=== PATIENT | male | born 1990 | race African-American/Black ===

== ENCOUNTER 2020-06-05 12:16 | Outpatient (CLI) | payer BC, SELFPAY ==
--- NOTE | 2020-06-05 | ECHO_ITS ---
Patient Info Name: Chu Love Age: 30 years : 1990 Gender: Male Ht: 69 in Wt: 260 lbs BSA: 2.45 m2 HR: 71 bpm BP: 155 / 100 mmHg Technical Quality: Good Exam Date: 06/05/2020 1:34 PM Exam Location: [facility] Patient Status: Outpatient Admit Date: 06/05/2020 Staff Ordering Physician: Anuj Coyle MD Outdoor [employer] Instructor: Ernesto Rosado RDCS, RT Attending Provider: Anuj Coyle MD Referring Physician: Leonides ARREOLA; Exam Type: CA echo doppler color flow Study Info Indications R00.2 - Palpitations Complete two-dimensional, color flow and Doppler transthoracic echocardiogram is performed. Summary 1. Complete two-dimensional, color flow and Doppler transthoracic echocardiogram is performed. 2. Left ventricular chamber dimension is normal. 3. Left ventricular systolic function is normal, estimated at 60-65%. 4. There is mildly increased left ventricular wall thickness. 5. The left ventricular diastolic function is normal. 6. E/e' 6 is not elevated. 7. Global longitudinal strain is abnormal at -15.2%. 8. There is mild mitral valve regurgitation. 9. There is mild tricuspid valve regurgitation. 10. No pulmonary hypertension, estimated pulmonary arterial systolic pressure is 25 mmHg. Left Ventricle E/e' 6 is not elevated. Global longitudinal strain is abnormal at -15.2%. Left ventricular chamber dimension is normal. Left ventricular systolic function is normal, estimated at 60-65%. There is mildly increased left ventricular wall thickness. The left ventricular diastolic function is normal. Right Ventricle Right ventricular chamber dimension is normal. Right ventricular systolic function is normal. Left Atria Left atrial chamber dimension is normal. Right Atria Right atrial chamber dimension is normal. Aortic Valve The aortic valve is trileaflet. There is no aortic valve stenosis. There is no aortic valve regurgitation. Pulmonic Valve There is no pulmonic regurgitation. Mitral Valve There is no mitral valve stenosis. There is mild mitral valve regurgitation. Tricuspid Valve There is mild tricuspid valve regurgitation. No pulmonary hypertension, estimated pulmonary arterial systolic pressure is 25 mmHg. Pericardium/Pleural There is no pericardial effusion. Inferior Vena Cava Normal inferior vena cava with >50% collapse upon inspiration consistent with normal right atrial pressure, 5 mmHg. Aorta The aortic root size at the sinus of Valsalva is normal. Left Ventricular Outflow Tract Name Value Normal LVOT 2D LVOT Diameter 1.9 cm LVOT Doppler LVOT Peak Gradient 4 mmHg LVOT Mean Gradient 2 mmHg LVOT VTI 20 cm LVOT VTI/AV VTI Ratio 0.8 LVOT Stroke Volume 58 ml LVOT CO 4.1 l/min LVOT CI 1.7 l/min/m2 Mitral Valve Name Value Normal --
--- NOTE | 2020-06-09 12:31 | WPDHOLTEREM ---
Holter/Event Monitor Holter/Event Monitor Date of procedure: 06/05/20 Procedure Type: 48 hour holter monitor Indications: Palpitations Conclusion: 1. 48 hour holter monitor on 06/05/20. 2. Underlying rhythm is sinus rhythm. HR range 49-152 bpm; average HR 77 bpm. 3. There are 3 premature supraventricular complexes. No supraventricular tachycardia. 4. There is 1 premature ventricular complex. No ventricular tachycardia. 5. No sinoatrial or atrioventricular blocks. No significant pauses greater than 2 seconds. 6. Patient reports symptoms of chest flutter with heart burn, chest flutter which demonstrate Sinus rhythm, HR range 71-102 bpm.
== END 2020-06-05 12:17 | disposition home or self-care (01) ==
LOC: ANHCARD 12:17
PROVIDERS: PCP Emergency Medicine; Visit Provider Emergency Medicine
DX: R00.2 Palpitations (principal); I36.1 Nonrheumatic tricuspid (valve) insufficiency; I34.0 Nonrheumatic mitral (valve) insufficiency
CPT/HCPCS: 93225; 93226; 93306

== ENCOUNTER 2020-10-16 15:20 | Outpatient (CLI) | payer BC, SELFPAY ==
--- NOTE | ~2020-10-16 | XR_ITS ---
EXAMINATION: XR UGIAC wo kub EXAM DATE: 10/16/2020 15:53 INDICATION: GERD w/o esophagitis. Right-sided neck, anterior chest pain when tilting head to the left . TECHNIQUE: Standard single and double contrast barium upper GI examination was performed. The DAP for this procedure was3.1 Gycm2. There is no prior study for comparison. FINDINGS: There is no esophageal stricture, diverticulum or mass identified. Gastroesophageal juncti on is normal in appearance. Reflux was not demonstrated during this examination. The stomach has a normal appearance without evidence of mass lesion, ulceration or filling defect. T here is normal rugal fold pattern. The duodenum and duodenal sweep are normal in appearance. IMPRESSION: Normal exam. Reviewed, dictated and finalized at location B. LE TRADER IMPRESSION: Normal exam.
== END 2020-10-16 15:21 ==
LOC: MICIMG 15:21
PROVIDERS: Visit Provider Emergency Medicine
DX: K21.9 Gastro-esophageal reflux disease without esophagitis (principal)
CPT/HCPCS: 74246

== ENCOUNTER 2021-01-13 09:12 | Outpatient (CLI) | payer BC, SELFPAY ==
--- NOTE | 2021-01-13 11:00 | NEURO_ITS ---
Impression: # Complains of upper extremity pain. # Normal nerve conduction study including median and ulnar nerves. # Normal needle/EMG exam. # Clinical correlation recommended. Nerve Conduction Studies Anti Sensory Summary Table Stim Site NR Peak (ms) P-T Amp (?V) Site1 Site2 Delta-P (ms) Dist (cm) Stalin (m/s) Left Median Anti Sensory (2-3nd Digit) Wrist 2.8 68.2 Wrist 2-3nd Digit 2.8 14.0 50 Wrist 2.7 59.6 Wrist 2-3nd Digit 2.8 14.0 50 Right Median Anti Sensory (2-3nd Digit) Wrist 2.7 64.0 Wrist 2-3nd Digit 2.7 14.0 52 Wrist 2.6 69.9 Wrist 2-3nd Digit 2.7 14.0 52 Left Radial Anti Sensory (Base 1st Digit) Wrist 1.8 28.9 Wrist Base 1st Digit 1.8 0.0 Right Radial Anti Sensory (Base 1st Digit) Wrist 2.3 20.0 Wrist Base 1st Digit 2.3 0.0 Left Ulnar Anti Sensory (5th Digit) Wrist 2.3 52.8 Wrist 5th Digit 2.3 14.0 61 Right Ulnar Anti Sensory (5th Digit) Wrist 2.3 68.0 Wrist 5th Digit 2.3 14.0 61 Motor Summary Table Stim Site NR Onset (ms) O-P Amp (mV) Site1 Site2 Delta-0 (ms) Dist (cm) Stalin (m/s) Left Median Motor (Abd Poll Brev) Wrist 2.8 7.1 Elbow Wrist 4.9 30.0 61 Elbow 7.7 3.9 Right Median Motor (Abd Poll Brev) Wrist 3.2 5.6 Elbow Wrist 4.5 29.0 64 Elbow 7.7 4.0 Left Ulnar Motor (Abd Dig Minimi) Wrist 2.5 6.3 A Elbow Wrist 5.7 33.0 58 A Elbow 8.2 6.0 Right Ulnar Motor (Abd Dig Minimi) Wrist 2.3 8.1 A Elbow Wrist 5.0 29.0 58 A Elbow 7.3 6.2 F Wave Studies NR F-Lat (ms) L-R F-Lat (ms) Left Median (Mrkrs) (Abd Poll Brev) 26.51 0.68 Right Median (Mrkrs) (Abd Poll Brev) 27.19 0.68 Left Ulnar (Mrkrs) (Abd Dig Min) 27.11 0.75 Right Ulnar (Mrkrs) (Abd Dig Min) 26.36 0.75 EMG Side Muscle Nerve Root Ins Act Fibs Amp Dur Recrt Comment Right 1stDorInt Ulnar C8-T1 Nml Nml Nml Nml Nml Right Ext Indicis Radial (Post Int) C7-8 Nml Nml Nml Nml Nml Right Ext Digitorum Radial (Post Int) C7-8 Nml Nml Nml Nml Nml Right BrachioRad Radial C5-6 Nml Nml Nml Nml Nml Right PronatorTeres Median C6-7 Nml Nml Nml Nml Nml Right Abd Poll Brev Median C8-T1 Nml Nml Nml Nml Nml Left 1stDorInt Ulnar C8-T1 Nml Nml Nml Nml Nml Left Ext Indicis Radial (Post Int) C7-8 Nml Nml Nml Nml Nml Left Ext Digitorum Radial (Post Int) C7-8 Nml Nml Nml Nml Nml Left BrachioRad Radial C5-6 Nml Nml Nml Nml Nml Left PronatorTeres Median C6-7 Nml Nml Nml Nml Nml Left Abd Poll Brev Median C8-T1 Nml Nml Nml Nml Nml Right Biceps Musculocut C5-6 Nml Nml Nml Nml Nml Right Triceps Radial C6-7-8 Nml Nml Nml Nml Nml Left Biceps Musculocut C5-6 Nml Nml Nml Nml Nml Left Triceps Radial C6-7-8 Nml Nml Nml Nml Nml MTDD
== END 2021-01-13 09:13 | disposition home or self-care (01) ==
PROVIDERS: PCP Emergency Medicine; Visit Provider Emergency Medicine
DX: M54.12 Radiculopathy, cervical region (principal)
CPT/HCPCS: 95886; 95911

== ENCOUNTER → 2021-02-10 08:20 | Outpatient (CLI) | payer BC, SELFPAY ==
--- NOTE | ~2021-02-10 | XR_ITS ---
EXAMINATION: XR cervical spine min 6V EXAM DATE: 02/10/2021 08:57 INDICATION: Cervicalgia. 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 TECHNIQUE: Cervical spine frontal, lateral, lateral swimmers, and open-mouth odontoid projections. Additional lateral flexion and lateral extension projections obtained. Additional oblique projections of the cervical spine. FINDINGS: There is no evidence of acute cervical fracture. The odontoid process is intact. Pre-dens space is normal. Prevertebral soft tissue is normal. There are no soft tissue abnormalities identi fied. Vertebral body and disc heights are well-maintained. The vertebral bodies are aligned on al l the lateral projections. There is no evidence of uncovertebral joint arthropathy or neural foramin al stenosis. IMPRESSION: 1. Normal cervical x-ray exam. Reviewed, dictated and finalized at location B.
== END ==
PROVIDERS: PCP Emergency Medicine; Visit Provider Emergency Medicine
DX: M54.2 Cervicalgia (principal)
CPT/HCPCS: 72052

== ENCOUNTER 2021-04-16 08:04 | Outpatient (CLI) | payer BC, SELFPAY ==
--- NOTE | ~2021-04-16 | US_ITS ---
US abdomen complete DATE: 04/16/2021 09:01 INDICATION: Right upper quadrant and epigastric abdominal pain TECHNIQUE: Real-time imaging of the abdomen, Doppler analysis COMPARISON: None FINDINGS: The pancreas is well visualized due to overlying bowel. No hepatic space-occupying mass lesion. Normal hepatopedal portal venous flow direction. No gallstones. Gallbladder wall thickness. -6 sonographic Rosado's sign. The common bile duct measure s 3.1 mm, normal. The abdominal aorta is of normal caliber. The inferior vena cava is unremarkable. Normal splenic size . No renal mass lesion or hydronephrosis. IMPRESSION: The pancreas is not evaluated due to interference from overlying bowel gas; otherwise no significant abnormality Reviewed, dictated and finalized at Location A. Reviewed, dictated and finalized at location B. IMPRESSION: The pancreas is not evaluated due to interference from overlying srikanth wel gas; otherwise no significant abnormality
== END 2021-04-16 08:05 | disposition home or self-care (01) ==
PROVIDERS: PCP Emergency Medicine; Visit Provider Emergency Medicine
DX: R10.9 Unspecified abdominal pain (principal)
CPT/HCPCS: 76700

== ENCOUNTER 2021-06-13 03:14 | Inpatient (IN) | payer BC, SELFPAY ==
[2021-06-13] VITALS (12 sets, daily range): BP systolic 129–165; BP diastolic 78–111; PULSE 70–116; RESP 16–20; TEMP 36.6–37.1; O2SAT 95–100; BMI 38.7
--- NOTE | ~2021-06-13 | CT_ITS ---
EXAMINATION: CT abdomen pelvis w con DATE: 06/13/2021 05:38 INDICATION: Right upper quadrant pain TECHNIQUE: Computed tomography (CT) of the abdomen and pelvis was performed with 100 cc Omnipaque 350 intravenous contrast. The dose-length product was 1538.85 mGy-cm. Automated exposure control and ite rative reconstruction technique were employed. COMPARISON: None. FINDINGS: Lung bases are unremarkable. Heart size normal. No significant pleural or pericardial effus ion. There are gallstones with possible mild gallbladder wall thickening. Findings suspicious for cho lecystitis. Clinically correlate. Gallbladder is distended. The liver, spleen, pancreas, adrenal glan ds and kidneys are unremarkable. Gallbladder is borderline size measuring 7 mm. No significant periap pendiceal inflammation. Nonobstructive bowel gas pattern. Bladder is distended. No significant pelvic masses or fluid collections. No free air or free fluid. No acute osseous abnormality. Mild lumbar sp ondylosis. IMPRESSION: 1. Cholelithiasis with gallbladder distention and possible mild gallbladder wall thickening. Findings suspicious for cholecystitis in the appropriate clinical setting. Reviewed, dictated and finalized at location A. IMPRESSION: 1. Cholelithiasis with gallbladder distention and possible mild gallbladder wal l thickening. Findings suspicious for cholecystitis in the appropriate clinical setting.
--- NOTE | ~2021-06-13 | US_ITS ---
US abdomen limited INDICATION: Right upper abdominal pain PROCEDURE: Realtime right upper abdominal ultrasound. COMPARISON: CT dated 06/13/2021 FINDINGS: The pancreas is normal without focal mass or pancreatic ductal dilation. Liver echotexture is normal without focal mass or intrahepatic biliary dilatation. There is normal directional flow i n the portal vein. Gallbladder wall is thickened measuring 4 mm. The stone identified on recent CT examination not defin itely visualized on the current study. Common bile duct measures 3 mm. No sonographic Rosado's sign . IMPRESSION: 1: Gallbladder wall thickening. Stones seen on CT examination dated 06/13/2021 on this study. Reviewed, dictated and finalized at location A.
[2021-06-13 03:38] LABS: Basophils Percent Auto 0.2 % (0.2-1.2); Hematocrit 47.1 % (42.0-52.0); Hemoglobin 15.6 g/dL (14.0-18.0); Immature Granulocyte Percent A 0.5 % (0-0.5); Lymphocytes Absolute Auto 1.26 K/mm3 (0.9-3.2); Lymphocytes Percent Auto 5.7 % (18.3-44.2); Mean Corpuscular HGB Conc 33.1 g/dl (32-36); Mean Corpuscular Hemoglobin 27.3 pg (26-34); Mean Corpuscular Volume 82.5 fl (80-100); Mean Platelet Volume 9.2 fl (7.4-10.4); Monocytes Absolute Auto 1.1 K/mm3 (0.1-0.6); Neutrophils Absolute Auto 19.5 K/mm3 (1.3-6.7); Neutrophils Percent Auto 88.6 % (45.5-73.1); Platelet Count Result 297 k/mm3 (150-375); Red Blood Count 5.71 M/mm3 (4.6-6.20); Red Cell Distribution Width 12.8 % (11.5-14.5); White Blood Count 22.1 K/mm3 (4.5-10.0)
[2021-06-13 03:44] LABS: Alanine Aminotransferase 36 U/L (4-50); Albumin Level 5.2 g/dL (3.5-5.1); Alkaline Phosphatase 70 U/L (38-126); Anion Gap 14 mmol/L (8-16); Aspartate Amino Transferase 36 U/L (17-59); Bilirubin,Total 0.6 mg/dL (0.2-1.3); Blood Urea Nitrogen 12 mg/dL (9-20); Calcium 9.7 mg/dL (8.4-10.2); Carbon Dioxide 27 mmol/L (22-30); Chloride 97 mmol/L (98-107); Estimated CRCL calculation 134 ml/min; Estimated Glomerular Filt Rate > 60; Glucose 161 mg/dL (65-110); Lipase 171 U/L (23-300); Potassium 3.9 mmol/L (3.4-5.0); Sodium 138 mmol/L (137-145)
[2021-06-13] MEDS: SODIUM CHLORIDE 0.9% IV 1,000 ML 999 ML IV CONT (04:38)
[2021-06-13] MEDS: ONDANSETRON INJ 4 MG/2 ML VIAL IV PUSH (04:39)
[2021-06-13] MEDS: MORPHINE SULFATE (*CRX) 4 MG/ML INJ IV PUSH ×2 (04:39→07:00)
[2021-06-13 05:03] LABS: Add Urine Microscopic? NO; Appearance Urine Clear (Clear); Bilirubin Urine Negative (Negative); Blood Urine Negative (Negative); Color Urine Straw (Yellow); Glucose Urine UA Negative (Negative); Ketones Urine Negative (Negative); Leukocyte Esterase Ur Negative LEU/UL (Negative); Nitrate Urine Negative (Negative); Protein Urine Negative (Negative); RBC Urine 0-2 /hpf (0-2); Specific Grav Ur 1.008 (1.001-1.035); Urobilinogen Urine Negative mg/dL (<2.0); WBC Urine 0-3 /hpf
--- NOTE | 2021-06-13 05:20 | PC.NURSE ---
Patient taken to CT.
--- NOTE | 2021-06-13 06:03 | ED.ABDPAIN ---
HPI - Abdominal Pain General Chief Complaint: Abdominal Pain <Franky Nelson MD - Last Filed: 06/13/21 06:06> Stated Complaint: Right flank pain <Franky Nelson MD - Last Filed: 06/13/21 06:06> Time Seen by Provider: 06/13/21 03:56 <Franky Nelson MD - Last Filed: 06/13/21 06:06> History of Present Illness HPI narrative: Patient is a 31-year-old male who presents ER with sudden onset right upper quadrant pain. Began at 2 PM yesterday. Has been persistent since then. Associate with nausea and vomiting. No fevers or chills or sweats. Worse deep breath. Had similar symptoms in the past and had an outpatient ultrasound to evaluate for gallstones but it was unremarkable. Has found no alleviating factors. <Franky Nelson MD - Last Filed: 06/13/21 06:06> Related Data Home Medications: Home Medications Medication Instructions Recorded Confirmed No Home Medications 06/13/21 06/13/21 <Franky Nelson MD - Last Filed: 06/13/21 06:06> Allergies/Adverse Reactions: Allergies Allergy/AdvReac Type Severity Reaction Status Date / Time No Known Allergies Allergy Verified 06/13/21 04:38 <Franky Nelson MD - Last Filed: 06/13/21 06:06> Review of Systems Review of Systems: All systems reviewed & are unremarkable except as noted in HPI and below <Franky Nelson MD - Last Filed: 06/13/21 06:06> Constitutional: Constitutional: Denies chills, Denies fever(s) and Denies weakness <Franky Nelson MD - Last Filed: 06/13/21 06:06> ENT: Denies nasal congestion and Denies sore throat <Franky Nelson MD - Last Filed: 06/13/21 06:06> Cardiovascular: Cardiovascular: Denies chest pain and Denies radiating jaw, neck or arm pain <Franky Nelson MD - Last Filed: 06/13/21 06:06> Gastrointestinal: Gastrointestinal: Reports abdominal pain, Denies diarrhea, Reports nausea and Reports vomiting <Franky Nelson MD - Last Filed: 06/13/21 06:06> Genitourinary: Genitourinary: Denies dysuria and Denies urinary frequency <Franky Nelson MD - Last Filed: 06/13/21 06:06> PMFSH Past Medical History Medical History: Medical History (Updated 06/13/21 @ 10:48 by Mary Vences MD) GERD (gastroesophageal reflux disease) <Franky Nelson MD - Last Filed: 06/13/21 06:06> Surgical History Surgical History: Surgical History (Updated 06/13/21 @ 06:05 by Franky Nelson MD) No history of previous surgery <Franky Nelson MD - Last Filed: 06/13/21 06:06> Social History Social History: Social History (Updated 06/13/21 @ 06:05 by Franky Nelson MD) Smoking status: Never smoker <Franky Nelson MD - Last Filed: 06/13/21 06:06> Exam Narrative: GENERAL: Well-appearing, well-nourished, and in no acute distress. HEAD: Normocephalic, atraumatic. ENT: Mucous membranes moist. CHEST: Clear to auscultation. No respiratory distress. HEART: Regular rate and rhythm. Normal peripheral pulses. ABDOMEN: Soft, tender palpation right upper quadrant with guarding, nondistended. EXTREMITIES: Normal range of motion. No edema. SKIN: Warm, dry, no rash. NEURO: Alert and oriented x3. PSYCH: Normal mood and affect. <Franky Nelson MD - Last Filed: 06/13/21 06:06> Course Reevaluation(s) Reevaluation #1: Assumed care from Dr. Nelson pending imaging results. <Mary Vences MD - Last Filed: 06/13/21 10:50> Date: 06/13/21 <Mary Vences MD - Last Filed: 06/13/21 10:50> Time: 07:00 <Mary Vences MD - Last Filed: 06/13/21 10:50> Consultations Consultation #1: Discussed with Dr. Walker, who agrees to admit. <Mary Vences MD - Last Filed: 06/13/21 10:50> Date: 06/13/21 <Mary Vences MD - Last Filed: 06/13/21 10:50> Time: 09:34 <Mary Vences MD - Last Filed: 06/13/21 10:50> Consultation #2: Discussed with Dr. Joyce, who states that he will admit patient to his service. He recommends c
--- NOTE | 2021-06-13 11:00 | PM.IMHP ---
H&P: HPI History of Present Illness Date/Time: 06/13/21 11:00 Chief Complaint: Right upper quadrant abdominal pain Narrative: This is a 31-year-old man who presented to the emergency department with acute onset of right upper quadrant pain that started yesterday. He states that he ate Chinese toast for breakfast, and had a large portion of this. Shortly after this, he began experiencing the abdominal pain had 1 other episode like this in the past several months, but it resolved with time. He does state that he seems to get these episodes more frequently when he over eats. He denies any fevers, but did feel chills for few minutes. He did have nausea and vomiting associated with this most recent episode. He has also been experiencing more constipation lately. He denies a family history gallbladder disease. He previously saw his PCP about 2 months ago for these symptoms. A gallbladder ultrasound was ordered at that time and was read as normal. Review of Systems Review of Systems: All systems reviewed & are unremarkable except as noted in HPI and below Constitutional: Constitutional: Reports chills and Denies fever(s) Eyes: Eyes: Denies change in vision ENT: Denies hearing loss, Denies neck pain and Denies sore throat Cardiovascular: Cardiovascular: Denies chest pain and Denies dyspnea Respiratory: Respiratory: Denies cough, Denies dyspnea and Denies wheezing Gastrointestinal: Gastrointestinal: Reports as per HPI Genitourinary: Genitourinary: Denies hematuria and Denies dysuria Musculoskeletal: Musculoskeletal: Denies arthralgias, Denies joint swelling and Denies neck pain Allergic/Immunologic: Allergic/Immunologic: Denies wheezing [facility] Past Medical History Medical History (Updated 06/13/21 @ 11:10 by Spike Joyce DO) GERD (gastroesophageal reflux disease) Surgical History Surgical History (Updated 06/13/21 @ 06:05 by Franky Nelson MD) No history of previous surgery Family History Family History (Updated 06/13/21 @ 11:05 by Spike Joyce DO) Mother Carcinoma of colon Social History Social History (Updated 06/13/21 @ 11:06 by Spike Joyce DO) Smoking status: Never smoker Alcohol intake: never Substance use: never Occupation/Education: occupation 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 Home Medications and Allergies Home Medications Medication Instructions Recorded Confirmed Type No Home Medications 06/13/21 06/13/21 History Allergies Allergy/AdvReac Type Severity Reaction Status Date / Time No Known Allergies Allergy Verified 06/13/21 04:38 Vital Signs Vital Signs - 24 hr 06/13/21 03:17 06/13/21 05:01 06/13/21 06:11 Temperature 36.6 C Pulse Rate 116 H 110 H Respiratory Rate 20 18 Blood Pressure 153/95 H 144/91 H 141/89 H Pulse Oximetry 100 97 97 06/13/21 06:12 06/13/21 08:01 06/13/21 08:53 Temperature Pulse Rate Respiratory Rate Blood Pressure 141/89 H 147/97 H 164/102 H Pulse Oximetry 97 95 97 06/13/21 09:01 06/13/21 09:31 Temperature Pulse Rate Respiratory Rate Blood Pressure 165/111 H 152/97 H Pulse Oximetry 97 98 Exam Const: General: alert; No acute distress Orientation/consciousness: patient oriented x3 Limitations: no limitations HENMT: Head: normocephalic and atraumatic Ears: hearing grossly normal bilaterally General nose exam: Normal external nose present and Normal nares present Mouth: Yes Normal oral and palatal mucosa present and Yes moist mucous membranes Eyes: General: appearance normal, both eyes and all related structures Conjunctivae: conjunctivae normal Sclera: sclerae normal Pupils: Equal, round and reactive pupils present EOM: EOMs intact bilaterally Neck: Neck: normal visual inspection, full ROM, no lymphadenopathy, supple and no JVD Lymphatic: no lymphadenopathy noted Chest: Chest palpation & inspection: normal inspection of the chest Resp:
--- NOTE | 2021-06-13 13:07 | ADMGEN ---
This patient, Chu Love, was admitted to [facility] Surg Room 301-01. Patient/family oriented to hospital policies and general routines including ID bracelet, bed and alarms, visiting hours, pain management, procedures, bathroom and other care routines, personal items, smoking policy, room service/diet, and visiting hours. Information on how to activate the Rapid Response Team has been discussed. Patient/Family are encouraged to report perceived risks to care and to ask questions if they do not understand what they are told or what they should do.
[2021-06-13] MEDS: ACETAMINOPHEN 500 MG TABLET 1000 MG PO ×2 (15:22→21:53)
[2021-06-14] VITALS (11 sets, daily range): BP systolic 129–146; BP diastolic 78–99; PULSE 74–106; RESP 10–20; TEMP 36.4–38.2; O2SAT 94–99
--- NOTE | 2021-06-14 09:36 | WPDHPUPDATE1 ---
History and Physical Update Update Date/Time: 06/14/21 09:36 History and Physical has been reviewed, including an updated exam of the patient. There are NO changes in the patient's condition. Risks, benefits, and alternatives have been discussed and questions answered. Patient agrees to proceed with procedure.
[2021-06-14] MEDS: LACTATED RINGERS 1,000 ML 30 ML IV CONT ×2 (09:43→12:01)
--- NOTE | 2021-06-14 10:20 | WPDANESEPPF ---
Anes - Initial Pre Proc Eval Procedure: Operation Date: 06/14/21 10:30 Proposed Procedures p Laparoscopic Cholecystectomy Possible Open - Spike Joyce DO Date/Time: 06/14/21 10:20 Surgeon: Spike Jyoce DO Pre Op Diagnosis: Cholecystitis Patient Data Age: 31 Gender: M Height: 1.78 m Weight: 122.4 kg Last Vital Signs Temp 99.0 F 06/14/21 09:20 Pulse 105 H 06/14/21 09:20 Resp 14 06/14/21 09:20 BP 139/84 06/14/21 09:20 Pulse Ox 97 06/14/21 09:20 Allergies Allergy/AdvReac Type Severity Reaction Status Date / Time No Known Allergies Allergy Verified 06/14/21 09:24 Home Medications Medication Instructions Recorded Confirmed Type No Home Medications 06/13/21 06/14/21 History Patient hx anesthesia problems: none Family hx anesthesia problems: none Results Review: All pre-operative results and documents have been reviewed as part of the pre-operative evaluation. [facility] Past Medical History Medical History (Updated 06/13/21 @ 11:10 by Spike Joyce DO) GERD (gastroesophageal reflux disease) Surgical History Surgical History (Updated 06/13/21 @ 06:05 by Franky Nelson MD) No history of previous surgery Family History Family History (Updated 06/13/21 @ 13:11 by Angi De Jesus RN) Mother Carcinoma of colon Grandparent Heart attack Grandparent Cerebrovascular accident Father Hypertension Social History Social History (Updated 06/13/21 @ 11:06 by Spike Joyce DO) Smoking status: Former smoker Tobacco type: cigarettes Alcohol intake: never Substance use: never Occupation/Education: occupation Additional occupation/education comments: [employer] Spiritual care concerns: No Anes - Eval Final PreProcedure Day of Procedure 06/14/21 10:20 Patient weight: obese Heart: regular rate and rhythm Lungs: clear to auscultation Neurological: alert and oriented Last oral intake: >/= 8 hours ASA classification: III Emergent: no Anesthetic plan: proceed Anesthesia type and monitoring: general ETT and standard monitoring Results Review: All pre-operative results and documents have been reviewed as part of the pre-operative evaluation. Informed Consent: The patient's anesthetic plan and its attendant risks and benefits were discussed with the patient/family/POA. Questions were solicited and answers provided to the satisfaction of the patient/family/POA.
[2021-06-14] MEDS: BUPIVACAINE HCL 0.5% PF 30 ML VIAL INFILTRATE (11:35)
--- NOTE | 2021-06-14 11:59 | W.PM.PROC2 ---
Procedure Note - Detailed Date of Procedure 06/14/21 Pre-op Diagnosis Acute cholecystitis Post-op Diagnosis other (Acute gangrenous cholecystitis) Procedure Performed Laparoscopic Cholecystectomy Surgeon Spike Joyce, DO Anesthesia general and local (0.5% bupivacaine) Indications This is a 31-year-old man who presented to the emergency department on 06/13/2021 with right upper quadrant abdominal pain. His pain had been constant for about the last 24 hours. He was having nausea and vomiting, but denied any fevers. He was found to have evidence of acute cholecystitis on CT. He was then admitted and placed on broad-spectrum IV antibiotics. Discussions were made with the patient about treatment options and decision was made to proceed with laparoscopic cholecystectomy, possible open. Findings Laparoscopic cholecystectomy was performed. The gallbladder appeared acutely inflamed and had evidence of gangrene. The wall was thickened and appeared gangrenous. The gallbladder itself was tense and dilated. The gallbladder was aspirated with a laparoscopic aspirating needle and approximately 40 cc of bile was aspirated. There were some pericholecystic adhesions, but the cystic duct appeared normal in size. The gallbladder was removed and sent to the lab for pathology. The abdomen was irrigated with about 500 mL of sterile saline. No other abnormalities were noted. I did have to place an extra 12 mm port in the left lateral abdomen so that I could place a laparoscopic paddle retractor to retract the omentum from the right upper quadrant so that I could adequately visualize the neck of the gallbladder. This port site was closed using a Jose-Margy cone in a similar fashion to the subxiphoid port. Description of Procedure Procedure as well as risks, benefits, and alternatives were discussed with patient. Written consent was obtained and placed in chart prior to procedure. The patient was brought back to surgical suite. Patient was placed in supine position on operating table. Time-out was done to confirm patient and procedure. Patient was then intubated by the anesthesia department. Abdomen was prepped and draped in sterile fashion using chlorhexidine prep. 0.5% bupivacaine with epinephrine was infiltrated at each site of incision. A 5 millimeter incision was made near the umbilicus, and a 5 millimeter Optiview trocar was advanced through the abdominal layers under direct visualization. Once inside the abdominal cavity, carbon dioxide was insufflated to create a pneumoperitoneum. The camera was inserted and the abdomen was inspected. No immediate abnormalities were identified. The patient was placed in reverse Trendelenburg position and rotated slightly to the left. An 11 millimeter incision was made in the subxiphoid region, and an 11 millimeter trocar was inserted under direct visualization. Two 5 millimeter incisions were made in the right upper quadrant, and two 5 millimeter trocars were inserted under direct visualization. The gallbladder was identified and grasped at the fundus and retracted superiorly. It was then grasped at the infundibulum retracted laterally. Careful dissection around the neck of the gallbladder was performed using blunt dissection with a [place] grasper and hook electrocautery. The cystic duct was identified, and a window was created behind it. The cystic artery was also identified and a window was created behind it. The critical view of safety was identified, visualizing the cystic duct running directly into the neck of the gallbladder, and the cystic artery running directly into the wall of the gallbladder. A 5 millimeter clip baby formula worker was then used to place 2 clips proximally and 1 clip distally on both the cystic duct and cystic artery. They were then both transected using endoscopic scissors. Once safely away from the ej hepatitis, the gallbladder was dissected free from the liver bed using hook electrocautery.
[2021-06-14] MEDS: fentaNYL CITRATE INJ (*CRX) 100 MCG/2 ML VIAL 25 MCG IV PUSH ×2 (12:19→12:28)
[2021-06-14] MEDS: MORPHINE SULFATE (*CRX) 4 MG/ML INJ IV PUSH ×2 (14:24→16:58)
[2021-06-14] MEDS: HYDROcodone/acetaminophen (*CRX) 10-325 MG TABLET 1 TAB PO (20:08)
[2021-06-15] VITALS: BP 141/81; PULSE 71; RESP 18; TEMP 36.4; O2SAT 96
[2021-06-15 04:00] VITALS: BP 127/80; PULSE 65; RESP 18; TEMP 36.4; O2SAT 93
[2021-06-15] MEDS: HYDROcodone/acetaminophen (*CRX) 10-325 MG TABLET 1 TAB PO ×2 (05:35→11:26)
[2021-06-15 06:57] LABS: Hematocrit 42.3 % (42.0-52.0); Hemoglobin 13.2 g/dL (14.0-18.0); Mean Corpuscular HGB Conc 31.2 g/dl (32-36); Mean Corpuscular Hemoglobin 26.8 pg (26-34); Mean Corpuscular Volume 85.8 fl (80-100); Mean Platelet Volume 9.4 fl (7.4-10.4); Platelet Count Result 241 k/mm3 (150-375); Red Blood Count 4.93 M/mm3 (4.6-6.20); Red Cell Distribution Width 13.2 % (11.5-14.5); White Blood Count 17.7 K/mm3 (4.5-10.0)
[2021-06-15 07:24] LABS: Alanine Aminotransferase 60 U/L (4-50); Albumin Level 4.3 g/dL (3.5-5.1); Alkaline Phosphatase 75 U/L (38-126); Anion Gap 7 mmol/L (8-16); Aspartate Amino Transferase 58 U/L (17-59); Bilirubin,Total 0.5 mg/dL (0.2-1.3); Blood Urea Nitrogen 11 mg/dL (9-20); Calcium 9.1 mg/dL (8.4-10.2); Carbon Dioxide 31 mmol/L (22-30); Chloride 100 mmol/L (98-107); Estimated CRCL calculation 111 ml/min; Estimated Glomerular Filt Rate > 60; Glucose 120 mg/dL (65-110); Potassium 4.2 mmol/L (3.4-5.0); Sodium 138 mmol/L (137-145)
[2021-06-15 07:35] VITALS: BP 129/85; PULSE 70; RESP 14; TEMP 36.2; O2SAT 97
--- NOTE | 2021-06-15 09:01 | PM.DS ---
DS: Admitting Diagnosis Discharge Date 06/15/2021 Admitting Diagnosis acute cholecystitis DS: Discharge Diagnosis Discharge Diagnosis (1) Acute gangrenous cholecystitis: Code(s): K81.0 - Acute cholecystitis Status: Acute (2) BMI 38.0-38.9,adult: Code(s): Z68.38 - Body mass index [BMI] 38.0-38.9, adult Status: Acute DS: Summary Hospital Course Reason for hospitalization: acute cholecystitis Hospital Course: this is a 31-year-old man who presented to the emergency department on 06/13/2021 with acute onset of right upper quadrant pain. Workup in the emergency department showed evidence of acute cholecystitis. He had an elevated white blood count at the time of admission. He was started on IV Zosyn and was admitted to the hospital. He then underwent laparoscopic cholecystectomy on 06/14/2021. Findings at the time of surgery showed evidence of acute gangrenous cholecystitis. He was then returned to the surgical floor postoperatively and IV antibiotics were continued. His diet and activity were slowly advanced as tolerated. On 06/15/2021 he was tolerating a low-fat diet and was up ambulating with adequate pain control. He remained hemodynamically stable. He was discharged on 06/15/2021. Patient will be sent home on oral antibiotics for another 7 days and pain meds. Status at Discharge Functional status at discharge: independent ambulation Overall status at discharge: patient is progressing back to baseline Time Spent with Patient Time attestation: Total time spent providing and/or coordinating discharge services: Time spent: Less than 30 minutes Exam Const: General: no acute distress and alert Orientation/consciousness: patient oriented x3 Resp: Effort & Inspection: normal respiratory effort Auscultation: clear to auscultation bilaterally Cardio: Rate: regular rate Rhythm: regular rhythm Heart sounds: S1 normal heart sound present and S2 normal heart sound present GI: Inspection: incision ( Intact with glue) GI Palp: Yes Tenderness to palpation present (GI) ( incisional) and No Guarding due to palpation present (GI) Auscultation: normal bowel sounds DS: Data Data Completed and Pending Pending studies at discharge: Pending at discharge 06/14/21 11:28 Surgical [PTH] Routine Labs on day of discharge: Labs from last 24 hours 10/05/21 10/05/21 05:59 05:59 WBC 17.7 H RBC 4.93 Hgb 13.2 L Hct 42.3 MCV 85.8 MCH 26.8 MCHC 31.2 L RDW 13.2 Plt Count 241 MPV 9.4 Sodium 138 Potassium 4.2 Chloride 100 Carbon Dioxide 31 H Anion Gap 7 L BUN 11 Creatinine 1.10 Estim Creat Clear Calc 111 Estimated GFR > 60 Glucose 120 H Calcium 9.1 Total Bilirubin 0.5 AST 58 ALT 60 H Alkaline Phosphatase 75 Total Protein 8.0 Albumin 4.3 Imaging Radiologist's impression: ITS Impressions Abdomen/Pelvis CT 06/13/21 07:50 IMPRESSION: 1. Cholelithiasis with gallbladder distention and possible mild gallbladder wall thickening. Findings suspicious for cholecystitis in the appropriate clinical setting. Abdomen Ultrasound 06/13/21 08:50 IMPRESSION: 1: Gallbladder wall thickening. Stones seen on CT examination dated 06/13/2021 on this study. Discharge Plan Discharge Attending physician on discharge: Spike Santiago Discharging Clinician: Spike Santiago Patient Disposition: Home, Self-Care Activity: other - see discharge instructions Diet: low fat Wound Care Instructions: follow printed instructions Discharge Instructions: DISCHARGE INSTRUCTION SHEET FOR HERNIA, GALLBLADDER AND APPENDIX SURGERIES DR. SANTIAGO PATIENT TO TAKE HOME 1. May shower, no soaking in bath x 2weeks. 2. Call office for: Wound increasingly painful or bleeding Vomiting Fever of greater than 101 degrees 3. If no bowel movement for three days, take 1 oz. (30 ml) Milk of Magnesia or MiraLax 17g 1 to 2 times da
--- NOTE | 2021-06-15 10:28 | WPDANESPN ---
Anes - Prog Note Post-Op Date/Time: 06/15/21 10:28 Cardiovascular status: normal Respiratory status: normal Airway patency: baseline Mental status: baseline Post-Op hydration status: normal Vital Signs: Last Vital Signs Temp 36.2 C L 06/15/21 07:35 Pulse 70 06/15/21 07:35 Resp 14 06/15/21 07:35 BP 129/85 06/15/21 07:35 Pulse Ox 97 06/15/21 07:35 Pain Score (VAS): 3 I/O: Intake & Output 06/14/21 06/15/21 06/15/21 23:59 07:59 15:59 Intake Total 640 1050 120 Output Total 700 2700 Balance -60 -1650 120 Laboratory Tests 06/15/21 05:59 06/15/21 05:59 06/15/21 06/15/21 05:59 05:59 WBC 17.7 H RBC 4.93 Hgb 13.2 L Hct 42.3 MCV 85.8 MCH 26.8 MCHC 31.2 L RDW 13.2 Plt Count 241 MPV 9.4 Sodium 138 Potassium 4.2 Chloride 100 Carbon Dioxide 31 H Anion Gap 7 L BUN 11 Creatinine 1.10 Estim Creat Clear Calc 111 Estimated GFR > 60 Glucose 120 H Calcium 9.1 Total Bilirubin 0.5 AST 58 ALT 60 H Alkaline Phosphatase 75 Total Protein 8.0 Albumin 4.3 Post-procedural complaints: none Patient Feedback: Patient satisfied with anesthetic care.
[2021-06-15 11:45] VITALS: BP 135/75; PULSE 73; RESP 16; TEMP 35.7; O2SAT 98
--- NOTE | 2021-06-15 13:26 | PC.NURSE ---
On 06/15/21, the student, Rojas Willard provided care and completed [facility] documentation on this patient. I have reviewed the student's documentation and agree with the findings.
== END 2021-06-15 12:25 | disposition home or self-care (01) | DRG 419 ==
LOC: ANHED 10:48 → ANH3MEDSUR 12:50
PROVIDERS: Admitting Provider Surgery; Emergency Provider Emergency Medicine; PCP Emergency Medicine; Visit Provider Surgery
PROC: 0FT44ZZ Resection of Gallbladder, Percutaneous Endoscopic Approach (ICD-10-PCS; CPT 47562; principal; 2021-06-14 10:30)
DX: K80.00 Calculus of gallbladder with acute cholecystitis without obstruction (principal); K82.A1 Gangrene of gallbladder in cholecystitis; K21.9 Gastro-esophageal reflux disease without esophagitis; D72.829 Elevated white blood cell count, unspecified
CPT/HCPCS: 36415; 74177; 76705; 80053; 81003; 83690; 85025; 85027; 88304; 96361; 96365; 96375; 96376; 99285; A9270; J1100; J1170; J2250; J2270; J2405; J2543; J2704; J3010; J7030; J7120; Q9967